=== PATIENT | male | born 1965 | race Caucasian/White ===

== ENCOUNTER 2022-11-10 12:59 | Emergency (ER) | payer SELFPAY ==
[~2022-11-10] VITALS: Ht 182.9 cm; Wt 84.7 kg
[2022-11-10] MEDS ORDERED: ACET650T61 PO (13:14)
[2022-11-10] MEDS ORDERED: NAPR1CAP PO (13:14)
[2022-11-10 15:41] VITALS: BP 101/79; TEMP 97.7; O2SAT 99
== END 2022-11-10 15:45 | disposition home or self-care (01) ==
LOC: M ED 12:59
DX: I83.891 Varicose veins of right lower extremity with other complications (principal); M79.81 Nontraumatic hematoma of soft tissue; F17.200 Nicotine dependence, unspecified, uncomplicated; Z79.1 Long term (current) use of non-steroidal anti-inflammatories (NSAID)

== ENCOUNTER 2024-02-03 12:39 | Emergency (ER) | payer SELFPAY ==
[~2024-02-03] VITALS: Ht 182.9 cm; Wt 81.0 kg
[~2024-02-03 12:39] MED LIST: ACET650T61 PO; NAPR1CAP PO
[2024-02-03] MEDS ORDERED: ISOVUE-370 76% 100ML VIAL As Ordered ONE (13:12)
[2024-02-03 13:14] LABS: BASO % 0.5 % (0.0-1.0); EOS # 0.1 10^3/uL (0.0-0.5); EOS % 1.1 % (0.0-3.0); HEMATOCRIT 43.5 % (42.0-52.0); HEMOGLOBIN 14.9 g/dl (13.5-17.5); LYMPH # 1.4 10^3/uL (1.5-5.0); LYMPH % 21.4 % (24.0-44.0); MEAN CORPUSCULAR HEMOGLOBIN 32.2 pg (27.0-33.0); MEAN CORPUSCULAR HGB CONC 34.3 g/dl (32.0-36.5); MONO % 15.4 % (2.0-8.0); NEUTROPHILS # 3.9 10^3/uL (1.5-8.5); NEUTROPHILS % 61.1 % (36.0-66.0); PLATELET COUNT, AUTOMATED 233 10^3/uL (150-450); RED BLOOD COUNT 4.63 10^6/uL (4.30-6.10); WHITE BLOOD COUNT 6.3 10^3/uL (4.0-10.0)
[2024-02-03] MEDS: NS 500 ML IV ONE (13:20)
[2024-02-03 13:27] LABS: INR 1.1; PARTIAL THROMBOPLASTIN TIME 26.3 SECONDS (24.8-34.2); PROTHROMBIN TIME 13.9 SECONDS (12.5-14.5)
[2024-02-03 13:37] VITALS: BP 128/92; TEMP 99.1; O2SAT 100
[2024-02-03] MEDS: TENECTEPLASE 50 MG/10 ML VIAL IVP ONE (13:59)
[2024-02-03] MEDS: SODIUM CHLORIDE 0.9% INJ 10 ML SYR IV ONE ×2 (14:00)
[2024-02-03 14:06] VITALS: BP 124/78
[2024-02-03] MEDS: DIGOXIN INJ 0.5 MG/2 ML AMP IV ONE (14:20)
[2024-02-03] MEDS: NS 1,000 ML IV SCH (14:21)
[2024-02-03 14:25] VITALS: BP 129/86
[2024-02-03] MEDS ORDERED: HOME MED LIST COMPLETE! XX SCH (14:30)
[2024-02-03 14:56] VITALS: TEMP 97.7; O2SAT 99
[2024-02-03 14:59] VITALS: BP 109/85
== END 2024-02-03 15:03 | disposition short-term general hospital (02) ==
LOC: M ED 12:39 → EDBD 12:39 → M ED 15:03
DX: I63.9 Cerebral infarction, unspecified (principal); I48.91 Unspecified atrial fibrillation; R47.01 Aphasia; M32.9 Systemic lupus erythematosus, unspecified; F17.200 Nicotine dependence, unspecified, uncomplicated; Z79.1 Long term (current) use of non-steroidal anti-inflammatories (NSAID)
CPT/HCPCS: 36415; 70450; 70496; 70498; 71045; 80047; 85025; 85610; 85730; 93005; 93041; 94760; 96374; 96375; 99291; 99292; J1160; J3101; Q9967

== ENCOUNTER → 2024-04-20 | Outpatient (CLI) | payer MEDICAID | LOC: M RAD 09:15 | PROVIDERS: ATTEND Nurse Practitioner Family | DX: I63.9 Cerebral infarction, unspecified (principal) ==

== ENCOUNTER → 2024-05-05 | Outpatient (REF) | payer MEDICAID, OTHER ==
[2024-05-05 18:50] LABS: HEMATOCRIT 40.8 % (42.0-52.0); HEMOGLOBIN 13.3 g/dl (13.5-17.5); MEAN CORPUSCULAR HEMOGLOBIN 31.7 pg (27.0-33.0); MEAN CORPUSCULAR HGB CONC 32.6 g/dl (32.0-36.5); MEAN CORPUSCULAR VOLUME 97.4 fl (80.0-96.0); PLATELET COUNT, AUTOMATED 222 10^3/uL (150-450); RED BLOOD COUNT 4.19 10^6/uL (4.30-6.10); WHITE BLOOD COUNT 6.1 10^3/uL (4.0-10.0)
[2024-05-05 19:05] LABS: PSA SCREENING 1.02 NG/ML (< 4.00)
[2024-05-05 19:09] LABS: THYROID STIMULATING HORMONE 0.423 uIU/ML (0.55-4.78)
[2024-05-05 19:10] LABS: ALKALINE PHOSPHATASE 121 U/L (40-129); ALT/SGPT 96 U/L (7.0-40); AST/SGOT 40 U/L (<34); BILIRUBIN,TOTAL 1.5 MG/DL (0.3-1.2); BLOOD UREA NITROGEN 17 MG/DL (9-23); CALCIUM LEVEL 10.7 MG/DL (8.3-10.6); CARBON DIOXIDE LEVEL 25 MMOL/L (20-31); CHLORIDE LEVEL 112 MMOL/L (98-107); CHOLESTEROL LEVEL 96 MG/DL (<200); CHOLESTEROL RISK RATIO 3.08 (<5); CREATININE FOR GFR 0.94 MG/DL (0.70-1.30); FREE T4 1.01 NG/DL (0.89-1.76); GLOMERULAR FILTRATION RATE > 60.0 (>49); GLUCOSE, FASTING 90 MG/DL (74-106); HDL CHOLESTEROL 31.1 MG/DL (>40); LDL CHOLESTEROL 43.3 MG/DL (<100); NON-HDL-C 64.9 MG/DL; POTASSIUM SERUM 4.7 MMOL/L (3.5-5.1); SODIUM LEVEL 144 MMOL/L (136-145); TOTAL PROTEIN 6.7 G/DL (5.7-8.2); TRIGLYCERIDES LEVEL 108 MG/DL (<150); VITAMIN B12 LEVEL 369 PG/ML (211-911)
[2024-05-05 19:12] LABS: FOLATE 7.61 NG/ML (>5.4)
[2024-05-05 19:29] LABS: HEMOGLOBIN A1c 5.3 % (4.0-6.0)
== END ==
LOC: M SFHCADAM 15:17
PROVIDERS: ATTEND Family Medicine
DX: Z86.73 Personal history of transient ischemic attack (TIA), and cerebral infarction without residual deficits (principal); E78.5 Hyperlipidemia, unspecified; G56.01 Carpal tunnel syndrome, right upper limb; Z12.5 Encounter for screening for malignant neoplasm of prostate

== ENCOUNTER 2024-05-15 12:43 | Emergency (ER) | payer OTHER ==
[~2024-05-15] VITALS: Ht 182.9 cm; Wt 79.1 kg
[2024-05-15 13:32] LABS: BASO % 0.3 % (0.0-1.0); EOS % 0.7 % (0.0-3.0); HEMATOCRIT 37.3 % (42.0-52.0); HEMOGLOBIN 12.4 g/dl (13.5-17.5); LYMPH # 1.3 10^3/uL (1.5-5.0); LYMPH % 22.1 % (24.0-44.0); MEAN CORPUSCULAR HGB CONC 33.2 g/dl (32.0-36.5); MEAN CORPUSCULAR VOLUME 96.4 fl (80.0-96.0); MONO # 0.8 10^3/uL (0.0-0.8); MONO % 13.1 % (2.0-8.0); NEUTROPHILS # 3.8 10^3/uL (1.5-8.5); NEUTROPHILS % 63.8 % (36.0-66.0); PLATELET COUNT, AUTOMATED 237 10^3/uL (150-450); RED BLOOD COUNT 3.87 10^6/uL (4.30-6.10)
[2024-05-15 13:53] LABS: CK-MB VALUE MASS 1.2 NG/ML (<3.6)
[2024-05-15 13:56] LABS: ALBUMIN 2.8 G/DL (3.2-5.2); ALKALINE PHOSPHATASE 113 U/L (40-129); ALT/SGPT 92 U/L (7.0-40); AST/SGOT 43 U/L (<34); BILIRUBIN,DIRECT 0.5 MG/DL (<0.4); BILIRUBIN,TOTAL 1.3 MG/DL (0.3-1.2); BLOOD UREA NITROGEN 16 MG/DL (9-23); CALCIUM LEVEL 10.2 MG/DL (8.3-10.6); CARBON DIOXIDE LEVEL 22 MMOL/L (20-31); CHLORIDE LEVEL 113 MMOL/L (98-107); CREATININE FOR GFR 1.02 MG/DL (0.70-1.30); GLOMERULAR FILTRATION RATE > 60.0 (>49); GLUCOSE, FASTING 98 MG/DL (74-106); POTASSIUM SERUM 4.7 MMOL/L (3.5-5.1); SODIUM LEVEL 142 MMOL/L (136-145); TOTAL PROTEIN 6.5 G/DL (5.7-8.2)
[2024-05-15 13:57] LABS: THYROID STIMULATING HORMONE 1.059 uIU/ML (0.55-4.78)
[2024-05-15 14:01] LABS: CPK CREATINE PHOSPHOKINASE 45 U/L (46-171); MB/CK RELATIVE INDEX 2.66 (< OR =4)
[2024-05-15 14:59] LABS: CK-MB VALUE MASS 1.1 NG/ML (<3.6)
[2024-05-15 15:04] LABS: MB/CK RELATIVE INDEX 2.68 (< OR =4)
[2024-05-15 15:40] LABS: PROCALCITONIN <0.04 ng/ml
[2024-05-15] MEDS: FUROSEMIDE 20MG/2ML VIAL IV ONE (16:50)
[2024-05-15] MEDS ORDERED: FURO20TA2 PO (20:56)
[2024-05-15 21:07] VITALS: BP 103/68; TEMP 97.7; O2SAT 95
== END 2024-05-15 21:10 | disposition home or self-care (01) ==
LOC: EDBD 12:43 → M ED 12:43
DX: I50.22 Chronic systolic (congestive) heart failure (principal); I48.91 Unspecified atrial fibrillation; I45.19 Other right bundle-branch block; M32.9 Systemic lupus erythematosus, unspecified; F17.200 Nicotine dependence, unspecified, uncomplicated; Z86.79 Personal history of other diseases of the circulatory system; Z79.899 Other long term (current) drug therapy
CPT/HCPCS: 71045; 71250; 80048; 80076; 82550; 82553; 83880; 84145; 84443; 84484; 85025; 87040; 87486; 87581; 87633; 87798; 93005; 93041; 94760; 96374; 99285; J1940

== ENCOUNTER → 2024-05-24 | Outpatient (CLI) | payer OTHER ==
[~2024-05-24] MED LIST changes: +FURO20TA2 PO
[2024-05-24 17:17] LABS: INR 1.61; PROTHROMBIN TIME 19.4 SECONDS (12.5-14.5)
== END ==
LOC: M WUC 11:26
PROVIDERS: ATTEND Internal Medicine Critical Care Medicine
DX: D68.69 Other thrombophilia (principal); I48.19 Other persistent atrial fibrillation

== ENCOUNTER → 2024-05-27 | Outpatient (CLI) | payer OTHER | LOC: M WUC 15:14 | PROVIDERS: ATTEND Internal Medicine Critical Care Medicine | DX: D68.69 Other thrombophilia (principal); I48.19 Other persistent atrial fibrillation; Z53.9 Procedure and treatment not carried out, unspecified reason ==

== ENCOUNTER → 2024-05-31 | Outpatient (REF) | payer OTHER ==
[~2024-05-31] MED LIST changes: +LASI20TA3 PO
[2024-05-31 16:23] LABS: INR 4.21; PROTHROMBIN TIME 40.1 SECONDS (12.5-14.5)
== END ==
LOC: M LAB REF 16:01 → M LABWUC 16:01
PROVIDERS: ATTEND Internal Medicine Critical Care Medicine
DX: D68.69 Other thrombophilia (principal); I48.19 Other persistent atrial fibrillation

== ENCOUNTER 2024-06-01 14:30 | Emergency (ER) | payer OTHER ==
[~2024-06-01] VITALS: Ht 182.9 cm; Wt 79.5 kg
[~2024-06-01 14:30] MED LIST changes: -LASI20TA3 PO
[2024-06-01 15:43] LABS: BASO % 0.5 % (0.0-1.0); EOS % 0.5 % (0.0-3.0); HEMATOCRIT 39.3 % (42.0-52.0); HEMOGLOBIN 13.1 g/dl (13.5-17.5); LYMPH # 1.5 10^3/uL (1.5-5.0); LYMPH % 25.3 % (24.0-44.0); MEAN CORPUSCULAR HEMOGLOBIN 32.4 pg (27.0-33.0); MEAN CORPUSCULAR HGB CONC 33.3 g/dl (32.0-36.5); MEAN CORPUSCULAR VOLUME 97.3 fl (80.0-96.0); MONO # 0.8 10^3/uL (0.0-0.8); MONO % 13.1 % (2.0-8.0); NEUTROPHILS # 3.6 10^3/uL (1.5-8.5); NEUTROPHILS % 60.4 % (36.0-66.0); PLATELET COUNT, AUTOMATED 201 10^3/uL (150-450); RED BLOOD COUNT 4.04 10^6/uL (4.30-6.10); WHITE BLOOD COUNT 5.9 10^3/uL (4.0-10.0)
[2024-06-01 16:12] LABS: CK-MB VALUE MASS 2.9 NG/ML (<3.6)
[2024-06-01 16:13] LABS: CPK CREATINE PHOSPHOKINASE 60 U/L (46-171); MB/CK RELATIVE INDEX 4.83 (< OR =4)
[2024-06-01 16:16] LABS: BLOOD UREA NITROGEN 25 MG/DL (9-23); CALCIUM LEVEL 8.9 MG/DL (8.3-10.6); CARBON DIOXIDE LEVEL 24 MMOL/L (20-31); CHLORIDE LEVEL 111 MMOL/L (98-107); CREATININE FOR GFR 1.16 MG/DL (0.70-1.30); GLOMERULAR FILTRATION RATE > 60.0 (>49); GLUCOSE, FASTING 83 MG/DL (74-106); POTASSIUM SERUM 4.2 MMOL/L (3.5-5.1); SODIUM LEVEL 142 MMOL/L (136-145)
[2024-06-01 17:39] LABS: CK-MB VALUE MASS 2.4 NG/ML (<3.6)
[2024-06-01 17:45] LABS: MB/CK RELATIVE INDEX 3.75 (< OR =4)
[2024-06-01] MEDS: FUROSEMIDE 40MG/4ML VIAL IV ONE (18:05)
[2024-06-01] MEDS ORDERED: LASI20TA3 PO (20:57)
[2024-06-01 21:15] VITALS: BP 91/61
[2024-06-01 21:16] VITALS: O2SAT 94
[2024-06-01 21:30] VITALS: TEMP 96.8
== END 2024-06-01 21:31 | disposition home or self-care (01) ==
LOC: EDBD 14:30 → M ED 14:30
DX: I50.22 Chronic systolic (congestive) heart failure (principal); R79.89 Other specified abnormal findings of blood chemistry; I45.10 Unspecified right bundle-branch block; I48.91 Unspecified atrial fibrillation; Z87.891 Personal history of nicotine dependence; Z79.899 Other long term (current) drug therapy
CPT/HCPCS: 71046; 80048; 82550; 82553; 83880; 84484; 85025; 85379; 87486; 87581; 87633; 87798; 93005; 96374; 99285; J1940

== ENCOUNTER → 2024-06-03 | Outpatient (CLI) | payer OTHER ==
[~2024-06-03] MED LIST changes: +LASI20TA3 PO
[2024-06-03 16:54] LABS: PROTHROMBIN TIME 31.1 SECONDS (12.5-14.5)
[2024-06-03 16:56] LABS: BLOOD UREA NITROGEN 28 MG/DL (9-23); CALCIUM LEVEL 9.3 MG/DL (8.3-10.6); CARBON DIOXIDE LEVEL 25 MMOL/L (20-31); CHLORIDE LEVEL 108 MMOL/L (98-107); CREATININE FOR GFR 1.23 MG/DL (0.70-1.30); GLOMERULAR FILTRATION RATE > 60.0 (>49); GLUCOSE, FASTING 118 MG/DL (74-106); MAGNESIUM LEVEL 2.2 MG/DL (1.8-2.4); POTASSIUM SERUM 4.4 MMOL/L (3.5-5.1); SODIUM LEVEL 142 MMOL/L (136-145)
== END ==
LOC: M WUC 13:56
PROVIDERS: ATTEND Internal Medicine Critical Care Medicine
DX: D68.69 Other thrombophilia (principal); I48.19 Other persistent atrial fibrillation

== ENCOUNTER → 2024-06-08 | Outpatient (CLI) | payer OTHER ==
[~2024-06-08] MED LIST changes: +ATOR40TA75 PO; +METO1TAB32 PO; +MIDO5TA PO; +WARF-23 PO
== END ==
LOC: M SOG 13:23
PROVIDERS: ATTEND Physician Assistant
DX: M79.641 Pain in right hand (principal)

== ENCOUNTER 2024-06-09 17:06 | Inpatient (IN) | payer MEDICAID, OTHER ==
[~2024-06-09] VITALS: Ht 182.9 cm; Wt 78.4 kg
[~2024-06-09 17:06] MED LIST changes: -ATOR40TA75 PO; -METO1TAB32 PO; -MIDO5TA PO; -WARF-23 PO
[2024-06-09] MEDS ORDERED: WARF-23 PO (17:25)
[2024-06-09] MEDS ORDERED: ATOR40TA75 PO (17:25)
[2024-06-09] MEDS ORDERED: METO1TAB32 PO (17:25)
[2024-06-09] MEDS ORDERED: MIDO5TA PO (17:25)
[2024-06-09 18:19] LABS: BASO % 0.5 % (0.0-1.0); EOS % 0.6 % (0.0-3.0); HEMATOCRIT 42.2 % (42.0-52.0); HEMOGLOBIN 13.9 g/dl (13.5-17.5); LYMPH # 1.7 10^3/uL (1.5-5.0); LYMPH % 26.7 % (24.0-44.0); MEAN CORPUSCULAR HEMOGLOBIN 31.9 pg (27.0-33.0); MEAN CORPUSCULAR HGB CONC 32.9 g/dl (32.0-36.5); MEAN CORPUSCULAR VOLUME 96.8 fl (80.0-96.0); MONO # 0.8 10^3/uL (0.0-0.8); MONO % 12.9 % (2.0-8.0); NEUTROPHILS # 3.8 10^3/uL (1.5-8.5); NEUTROPHILS % 59.1 % (36.0-66.0); PLATELET COUNT, AUTOMATED 229 10^3/uL (150-450); RED BLOOD COUNT 4.36 10^6/uL (4.30-6.10); WHITE BLOOD COUNT 6.4 10^3/uL (4.0-10.0)
[2024-06-09 18:48] LABS: ALBUMIN 2.9 G/DL (3.2-5.2); ALKALINE PHOSPHATASE 104 U/L (40-129); ALT/SGPT 63 U/L (7.0-40); AST/SGOT 34 U/L (<34); BILIRUBIN,DIRECT 0.6 MG/DL (<0.4); BILIRUBIN,TOTAL 1.6 MG/DL (0.3-1.2); BLOOD UREA NITROGEN 25 MG/DL (9-23); CALCIUM LEVEL 9.2 MG/DL (8.3-10.6); CARBON DIOXIDE LEVEL 27 MMOL/L (20-31); CHLORIDE LEVEL 107 MMOL/L (98-107); CK-MB VALUE MASS 1.8 NG/ML (<3.6); CPK CREATINE PHOSPHOKINASE 63 U/L (46-171); CREATININE FOR GFR 1.09 MG/DL (0.70-1.30); GLOMERULAR FILTRATION RATE > 60.0 (>49); GLUCOSE, FASTING 102 MG/DL (74-106); MB/CK RELATIVE INDEX 2.85 (< OR =4); POTASSIUM SERUM 3.9 MMOL/L (3.5-5.1); SODIUM LEVEL 142 MMOL/L (136-145)
[2024-06-09 20:02] LABS: CK-MB VALUE MASS 2.9 NG/ML (<3.6)
[2024-06-09] MEDS ORDERED: ISOVUE-370 76% 100ML VIAL As Ordered ONE (20:05)
[2024-06-09 20:13] LABS: MB/CK RELATIVE INDEX 3.91 (< OR =4)
[2024-06-09] MEDS: IPRATROPIUM 0.5MG/ALBUTEROL 2.5MG INH SOL UD 3ML (DUONEB) NEB ONE (21:07)
[2024-06-09 21:35] LABS: CK-MB VALUE MASS 2.8 NG/ML (<3.6)
[2024-06-09 21:36] LABS: MB/CK RELATIVE INDEX 4.59 (< OR =4)
[2024-06-09 21:39] LABS: INR 1.84; PARTIAL THROMBOPLASTIN TIME 31.4 SECONDS (24.8-34.2); PROTHROMBIN TIME 21.4 SECONDS (12.5-14.5)
[2024-06-09] MEDS: FUROSEMIDE 40MG/4ML VIAL IV ONE (22:50)
[2024-06-09] MEDS ORDERED: MAALOX 30 ML SUSP *UDC PO PRN (23:50)
[2024-06-09] MEDS ORDERED: MOM 30ML SUSPENSION UDC PO PRN (23:50)
[2024-06-09] MEDS ORDERED: ACETAMINOPHEN 325 MG TAB PO PRN (23:50)
[2024-06-10] VITALS (14 sets, daily range): BP systolic 95–129; BP diastolic 55–74; TEMP 97.1–99.6; O2SAT 93–100
[2024-06-10] MEDS ORDERED: FURO20TA2 PO (00:16)
[2024-06-10] MEDS ORDERED: HOME MED LIST COMPLETE! XX SCH (00:20)
[2024-06-10] MEDS: METOPROLOL TART 25 MG TABLET PO SCH (01:20)
[2024-06-10] MEDS: WARFARIN SOD 2.5MG TAB PO SCH (01:21)
[2024-06-10] MEDS: ATORVASTATIN 20 MG TAB PO SCH (01:21)
[2024-06-10] MEDS: FUROSEMIDE 40MG/4ML VIAL IV SCH (05:55)
[2024-06-10 07:21] LABS: HEMATOCRIT 37.9 % (42.0-52.0); HEMOGLOBIN 12.7 g/dl (13.5-17.5); MEAN CORPUSCULAR HEMOGLOBIN 31.4 pg (27.0-33.0); MEAN CORPUSCULAR HGB CONC 33.5 g/dl (32.0-36.5); MEAN CORPUSCULAR VOLUME 93.8 fl (80.0-96.0); PLATELET COUNT, AUTOMATED 220 10^3/uL (150-450); RED BLOOD COUNT 4.04 10^6/uL (4.30-6.10); WHITE BLOOD COUNT 6.7 10^3/uL (4.0-10.0)
[2024-06-10 07:44] LABS: HEMOGLOBIN A1c 5.7 % (4.0-6.0)
[2024-06-10 07:52] LABS: ALBUMIN 2.8 G/DL (3.2-5.2); ALKALINE PHOSPHATASE 99 U/L (40-129); ALT/SGPT 57 U/L (7.0-40); AST/SGOT 30 U/L (<34); BILIRUBIN,TOTAL 1.6 MG/DL (0.3-1.2); BLOOD UREA NITROGEN 25 MG/DL (9-23); CALCIUM LEVEL 9.3 MG/DL (8.3-10.6); CARBON DIOXIDE LEVEL 24 MMOL/L (20-31); CHLORIDE LEVEL 108 MMOL/L (98-107); CHOLESTEROL LEVEL 99 MG/DL (<200); CK-MB VALUE MASS 1.6 NG/ML (<3.6); CPK CREATINE PHOSPHOKINASE 62 U/L (46-171); GLOMERULAR FILTRATION RATE > 60.0 (>49); GLUCOSE, FASTING 81 MG/DL (74-106); MAGNESIUM LEVEL 2.3 MG/DL (1.8-2.4); MB/CK RELATIVE INDEX 2.58 (< OR =4); POTASSIUM SERUM 3.6 MMOL/L (3.5-5.1); SODIUM LEVEL 141 MMOL/L (136-145); TOTAL PROTEIN 6.8 G/DL (5.7-8.2); TRIGLYCERIDES LEVEL 70 MG/DL (<150)
[2024-06-10 07:54] LABS: THYROID STIMULATING HORMONE 3.296 uIU/ML (0.55-4.78)
[2024-06-10 07:58] LABS: INR 1.74; PROTHROMBIN TIME 20.5 SECONDS (12.5-14.5)
[2024-06-10] MEDS: NICOTINE 14 MG/24 HR TRANSDERMAL TD SCH (08:10)
[2024-06-10] MEDS: DOCUSATE SODIUM 100MG CAPSULE PO SCH (08:10)
[2024-06-10] MEDS: MIDODRINE 5 MG TAB PO SCH (08:16)
[2024-06-10] MEDS ORDERED: ENOXAPARIN 40MG/0.4ML SYRINGE (J1650 PER 10MG) SC SCH (10:00)
[2024-06-10] MEDS: WARFARIN SOD 4MG TAB PO ONE (17:47)
[2024-06-11] VITALS (19 sets, daily range): BP systolic 92–108; BP diastolic 63–79; TEMP 98.1–99.5; O2SAT 94–98
[2024-06-11 06:00] LABS: HEMATOCRIT 36.8 % (42.0-52.0); HEMOGLOBIN 12.3 g/dl (13.5-17.5); MEAN CORPUSCULAR HEMOGLOBIN 31.9 pg (27.0-33.0); MEAN CORPUSCULAR HGB CONC 33.4 g/dl (32.0-36.5); MEAN CORPUSCULAR VOLUME 95.6 fl (80.0-96.0); PLATELET COUNT, AUTOMATED 206 10^3/uL (150-450); RED BLOOD COUNT 3.85 10^6/uL (4.30-6.10)
[2024-06-11 06:11] LABS: INR 1.98; PROTHROMBIN TIME 22.6 SECONDS (12.5-14.5)
[2024-06-11 06:23] LABS: BLOOD UREA NITROGEN 31 MG/DL (9-23); CALCIUM LEVEL 8.9 MG/DL (8.3-10.6); CARBON DIOXIDE LEVEL 24 MMOL/L (20-31); CHLORIDE LEVEL 106 MMOL/L (98-107); CREATININE FOR GFR 1.28 MG/DL (0.70-1.30); GLOMERULAR FILTRATION RATE > 60.0 (>49); GLUCOSE, FASTING 90 MG/DL (74-106); POTASSIUM SERUM 3.7 MMOL/L (3.5-5.1); SODIUM LEVEL 140 MMOL/L (136-145)
[2024-06-11] MEDS: WARFARIN SOD 3MG TAB PO SCH (16:22)
[2024-06-11 18:57] LABS: KETONE, URINE AUTO RFX NEGATIVE (NEGATIVE); LEUKOCYTE ESTERASE UR AUTO RFX NEGATIVE (NEGATIVE); NITRITE, URINE AUTO RFX NEGATIVE (NEGATIVE); RBC, URINE AUTO RFX 7 /HPF (0-3); SQUAM EPITHELIAL CELL UR AURFX 0 /HPF (0-6); WBC, URINE AUTO RFX 2 /HPF (0-3)
[2024-06-11 19:45] LABS: CK-MB VALUE MASS 1.5 NG/ML (<3.6)
[2024-06-11 19:47] LABS: MB/CK RELATIVE INDEX 2.41 (< OR =4)
[2024-06-11] MEDS: METOPROLOL TART 25 MG TABLET PO SCH (20:35)
[2024-06-12] VITALS (21 sets, daily range): BP systolic 96–108; BP diastolic 60–83; TEMP 97.5–99.2; O2SAT 92–100
[2024-06-12 05:31] LABS: HEMATOCRIT 35.5 % (42.0-52.0); HEMOGLOBIN 12.1 g/dl (13.5-17.5); MEAN CORPUSCULAR HEMOGLOBIN 31.4 pg (27.0-33.0); MEAN CORPUSCULAR HGB CONC 34.1 g/dl (32.0-36.5); MEAN CORPUSCULAR VOLUME 92.2 fl (80.0-96.0); PLATELET COUNT, AUTOMATED 205 10^3/uL (150-450); RED BLOOD COUNT 3.85 10^6/uL (4.30-6.10); WHITE BLOOD COUNT 6.2 10^3/uL (4.0-10.0)
[2024-06-12 05:47] LABS: INR 2.01; PROTHROMBIN TIME 22.9 SECONDS (12.5-14.5)
[2024-06-12 06:02] LABS: CK-MB VALUE MASS 2.2 NG/ML (<3.6)
[2024-06-12 06:08] LABS: ALBUMIN 2.8 G/DL (3.2-5.2); ALKALINE PHOSPHATASE 105 U/L (40-129); ALT/SGPT 58 U/L (7.0-40); AST/SGOT 34 U/L (<34); BILIRUBIN,TOTAL 1.9 MG/DL (0.3-1.2); BLOOD UREA NITROGEN 29 MG/DL (9-23); CALCIUM LEVEL 8.4 MG/DL (8.3-10.6); CARBON DIOXIDE LEVEL 22 MMOL/L (20-31); CHLORIDE LEVEL 108 MMOL/L (98-107); CPK CREATINE PHOSPHOKINASE 59 U/L (46-171); CREATININE FOR GFR 1.19 MG/DL (0.70-1.30); GLOMERULAR FILTRATION RATE > 60.0 (>49); GLUCOSE, FASTING 88 MG/DL (74-106); MB/CK RELATIVE INDEX 3.72 (< OR =4); POTASSIUM SERUM 3.8 MMOL/L (3.5-5.1); SODIUM LEVEL 141 MMOL/L (136-145); TOTAL PROTEIN 6.3 G/DL (5.7-8.2)
[2024-06-12] MEDS: FUROSEMIDE 40MG/4ML VIAL IV SCH (09:00)
[2024-06-12] MEDS ORDERED: METOPROLOL SUCC *XL* 25MG TAB (TopROL *XL*) PO SCH (09:00)
[2024-06-12] MEDS: DAPAGLIFLOZIN PROPANEDIOL 10MG TABLET (FARXIGA) PO SCH (09:23)
[2024-06-12] MEDS: AMIODARONE 200 MG TAB (PACERONE) PO SCH (12:44)
[2024-06-12] MEDS: METOPROLOL TART 25 MG TABLET PO ONE (12:45)
[2024-06-12] MEDS ORDERED: AMIODARONE 200 MG TAB (PACERONE) PO SCH (21:00)
[2024-06-13] VITALS (16 sets, daily range): BP systolic 99–108; BP diastolic 59–81; TEMP 97.7–98.8; O2SAT 90–98
[2024-06-13 03:31] LABS: PROTEIN, TOTAL SO 6.2 g/dL (6.1-8.1)
[2024-06-13 06:04] LABS: HEMATOCRIT 36.9 % (42.0-52.0); HEMOGLOBIN 12.8 g/dl (13.5-17.5); MEAN CORPUSCULAR HEMOGLOBIN 32.4 pg (27.0-33.0); MEAN CORPUSCULAR HGB CONC 34.7 g/dl (32.0-36.5); MEAN CORPUSCULAR VOLUME 93.4 fl (80.0-96.0); PLATELET COUNT, AUTOMATED 201 10^3/uL (150-450); RED BLOOD COUNT 3.95 10^6/uL (4.30-6.10); WHITE BLOOD COUNT 5.8 10^3/uL (4.0-10.0)
[2024-06-13 06:16] LABS: INR 2.22; PROTHROMBIN TIME 24.7 SECONDS (12.5-14.5)
[2024-06-13 06:29] LABS: ALBUMIN 2.9 G/DL (3.2-5.2); BILIRUBIN,TOTAL 2.2 MG/DL (0.3-1.2); CALCIUM LEVEL 8.8 MG/DL (8.3-10.6); CK-MB VALUE MASS 3.1 NG/ML (<3.6); CREATININE FOR GFR 1.32 MG/DL (0.70-1.30); GLOMERULAR FILTRATION RATE 58.9 (>49); POTASSIUM SERUM 3.9 MMOL/L (3.5-5.1); TOTAL PROTEIN 6.5 G/DL (5.7-8.2)
[2024-06-13 06:30] LABS: MB/CK RELATIVE INDEX 5.53 (< OR =4)
[2024-06-14 03:05] VITALS: BP 113/71; TEMP 97.5; O2SAT 96
[2024-06-14 05:01] LABS: HEMATOCRIT 37.2 % (42.0-52.0); HEMOGLOBIN 12.5 g/dl (13.5-17.5); MEAN CORPUSCULAR HEMOGLOBIN 32.1 pg (27.0-33.0); MEAN CORPUSCULAR HGB CONC 33.6 g/dl (32.0-36.5); MEAN CORPUSCULAR VOLUME 95.6 fl (80.0-96.0); PLATELET COUNT, AUTOMATED 211 10^3/uL (150-450); RED BLOOD COUNT 3.89 10^6/uL (4.30-6.10); WHITE BLOOD COUNT 6.2 10^3/uL (4.0-10.0)
[2024-06-14 05:14] LABS: INR 2.37
[2024-06-14 05:34] LABS: CK-MB VALUE MASS 1.8 NG/ML (<3.6)
[2024-06-14 05:35] LABS: MB/CK RELATIVE INDEX 3.6 (< OR =4)
[2024-06-14 05:36] LABS: ALBUMIN 2.9 G/DL (3.2-5.2); CALCIUM LEVEL 9.1 MG/DL (8.3-10.6); CREATININE FOR GFR 1.3 MG/DL (0.70-1.30); GLOMERULAR FILTRATION RATE 59.9 (>49); POTASSIUM SERUM 4.2 MMOL/L (3.5-5.1); TOTAL PROTEIN 6.5 G/DL (5.7-8.2)
[2024-06-14 07:57] VITALS: BP 104/69; TEMP 98.7; O2SAT 93
[2024-06-14 09:14] VITALS: BP 106/79; O2SAT 96
[2024-06-14 11:39] VITALS: BP 100/70; TEMP 98.5; O2SAT 97
[2024-06-14 12:01] LABS: PROTEIN CREATININE RATIO 256 mg/g creat (25-148); T PROTEIN CREATININE RATIO 0.256 (0.025-0.148); UPEP CREATININE 117 mg/dL (20-320); UPEP TOTAL PROTEIN 30 mg/dL (5-25)
[2024-06-14 16:19] VITALS: BP 94/68; TEMP 97.3; O2SAT 96
[2024-06-14 19:28] VITALS: BP 93/74; TEMP 98.6; O2SAT 96
[2024-06-15] VITALS (8 sets, daily range): BP systolic 91–112; BP diastolic 58–87; TEMP 97–98.5; O2SAT 96–97
[2024-06-15 06:08] LABS: ALPHA 1 GLOBULINS SO 0.3 g/dL (0.2-0.3); ALPHA 2 GLOBULINS SO 0.7 g/dL (0.5-0.9); BETA 2 GLOBULIN SO 0.2 g/dL (0.2-0.5); BETA GLOBULIN SO 0.3 g/dL (0.4-0.6); GAMMA GLOBULINS SO 1.6 g/dL (0.8-1.7); SPEP IFE ABN PROTEIN BAND 1 1.4 g/dL (NONE DETECTED)
[2024-06-15 07:17] LABS: HEMATOCRIT 37.3 % (42.0-52.0); HEMOGLOBIN 12.4 g/dl (13.5-17.5); MEAN CORPUSCULAR HEMOGLOBIN 31.4 pg (27.0-33.0); MEAN CORPUSCULAR HGB CONC 33.2 g/dl (32.0-36.5); MEAN CORPUSCULAR VOLUME 94.4 fl (80.0-96.0); PLATELET COUNT, AUTOMATED 215 10^3/uL (150-450); RED BLOOD COUNT 3.95 10^6/uL (4.30-6.10); WHITE BLOOD COUNT 6.1 10^3/uL (4.0-10.0)
[2024-06-15 07:31] LABS: INR 2.67; PROTHROMBIN TIME 28.4 SECONDS (12.5-14.5)
[2024-06-15 07:54] LABS: ALBUMIN 2.8 G/DL (3.2-5.2); BILIRUBIN,TOTAL 1.9 MG/DL (0.3-1.2); CALCIUM LEVEL 8.9 MG/DL (8.3-10.6); CK-MB VALUE MASS 1.3 NG/ML (<3.6); CREATININE FOR GFR 1.36 MG/DL (0.70-1.30); GLOMERULAR FILTRATION RATE 56.9 (>49); MB/CK RELATIVE INDEX 2.2 (< OR =4); POTASSIUM SERUM 3.9 MMOL/L (3.5-5.1); TOTAL PROTEIN 6.7 G/DL (5.7-8.2)
[2024-06-15] MEDS: TORSEMIDE 20 MG TAB PO SCH (11:06)
[2024-06-15 11:58] LABS: UPEP ALBUMIN 49 %; URINE ALPHA 1 GLOBULIN 4 %; URINE ALPHA 2 GLOBULIN 10 %; URINE BETA GLOBULIN 14 %; URINE GAMMA GLOBULIN 23 %
[2024-06-15 12:47] LABS: PROTEIN CREATININE RATIO 322 mg/g creat (25-148); T PROTEIN CREATININE RATIO 0.322 (0.025-0.148); UPEP CREATININE 115 mg/dL (20-320); UPEP TOTAL PROTEIN 37 mg/dL (5-25)
[2024-06-15 13:03] LABS: FREE KAPPA LIGHT CHAINS SERUM 21.3 mg/L (3.3-19.4); FREE LAMBDA LIGHT CHAINS SERUM 224.7 mg/L (5.7-26.3); KAPPA/LAMBDA RATIO SERUM 0.09 (0.26-1.65)
[2024-06-15] MEDS ORDERED: METO1TAB87 PO (14:02)
[2024-06-15] MEDS ORDERED: AMIO200T49 PO (14:02)
[2024-06-15] MEDS ORDERED: FARX1TAB3 PO (14:02)
[2024-06-16 07:23] LABS: UPEP ALBUMIN 46 %; URINE ALPHA 1 GLOBULIN 4 %; URINE ALPHA 2 GLOBULIN 13 %; URINE BETA GLOBULIN 14 %; URINE GAMMA GLOBULIN 22 %
[2024-06-16 13:53] LABS: FREE KAPPA LIGHT CHAINS URINE 70.09 mg/L (<=32.90); FREE LAMBDA LIGHT CHAINS URINE 82.1 mg/L (<=3.79); KAPPA/LAMBDA RATIO URINE 0.85 (<=8.69)
[2024-06-16] MEDS ORDERED: ELIQ5TAB PO (13:57)
== END 2024-06-15 15:35 | disposition home or self-care (01) | DRG 194 ==
LOC: M ED 17:06 → M ED INP 23:46 → M PCU 06-10 09:10
PROVIDERS: ADMIT Student in an Organized Health Care Education/Training Program; ATTEND Student in an Organized Health Care Education/Training Program
DX: I50.43 Acute on chronic combined systolic (congestive) and diastolic (congestive) heart failure (principal); I95.89 Other hypotension; E85.4 Organ-limited amyloidosis; I82.90 Acute embolism and thrombosis of unspecified vein; I27.20 Pulmonary hypertension, unspecified; H53.47 Heteronymous bilateral field defects; I42.8 Other cardiomyopathies; I08.1 Rheumatic disorders of both mitral and tricuspid valves; I24.89 Other forms of acute ischemic heart disease; Z79.01 Long term (current) use of anticoagulants; I48.91 Unspecified atrial fibrillation; I69.398 Other sequelae of cerebral infarction; J44.9 Chronic obstructive pulmonary disease, unspecified; R00.0 Tachycardia, unspecified; F17.200 Nicotine dependence, unspecified, uncomplicated; Z79.899 Other long term (current) drug therapy

== ENCOUNTER 2024-06-20 10:32 | Inpatient (IN) | payer MEDICAID ==
[~2024-06-20] VITALS: Ht 182.9 cm; Wt 78.8 kg
[~2024-06-20 10:32] MED LIST changes: +AMIO200T49 PO; +ATOR40TA75 PO; +ELIQ5TAB PO; +FARX1TAB3 PO; +METO1TAB32 PO; +METO1TAB87 PO; +MIDO5TA PO; +WARF-23 PO
[2024-06-20 11:38] LABS: VENOUS BASE EXCESS -4.7 (-2.0-2.0); VENOUS HCO3 21.7 MMOL/L (23.0-27.0); VENOUS O2 SATURATION 53.6 % (60.0-80.0); VENOUS PARTIAL PRESSURE CO2 44.8 mmHg (38.0-50.0); VENOUS PARTIAL PRESSURE O2 32.2 mmHg (30.0-50.0); VENOUS PH 7.303 UNITS (7.330-7.430); VENOUS STANDARD HCO3 19.6 MMOL/L; VENOUS TOTAL CO2 23.1 MMOL/L (24.0-28.0)
[2024-06-20 11:43] LABS: BASO % 0.3 % (0.0-1.0); EOS % 0.5 % (0.0-3.0); HEMATOCRIT 42.7 % (42.0-52.0); HEMOGLOBIN 14.2 g/dl (13.5-17.5); LYMPH # 1.3 10^3/uL (1.5-5.0); LYMPH % 21.9 % (24.0-44.0); MEAN CORPUSCULAR HEMOGLOBIN 32.1 pg (27.0-33.0); MEAN CORPUSCULAR HGB CONC 33.3 g/dl (32.0-36.5); MEAN CORPUSCULAR VOLUME 96.4 fl (80.0-96.0); MONO # 0.6 10^3/uL (0.0-0.8); MONO % 9.4 % (2.0-8.0); NEUTROPHILS # 4.1 10^3/uL (1.5-8.5); NEUTROPHILS % 67.7 % (36.0-66.0); PLATELET COUNT, AUTOMATED 209 10^3/uL (150-450); RED BLOOD COUNT 4.43 10^6/uL (4.30-6.10); WHITE BLOOD COUNT 6.1 10^3/uL (4.0-10.0)
[2024-06-20] MEDS ORDERED: METOPROLOL SUCC *XL* 25MG TAB (TopROL *XL*) PO ONE (11:45)
[2024-06-20 11:56] LABS: INR 1.38; PARTIAL THROMBOPLASTIN TIME 23.8 SECONDS (24.8-34.2); PROTHROMBIN TIME 17.3 SECONDS (12.5-14.5)
[2024-06-20] MEDS: AMIODARONE 200 MG TAB (PACERONE) PO ONE (12:14)
[2024-06-20] MEDS: METOPROLOL TART 12.5 MG PER 1/2 TAB PO ONE (12:14)
[2024-06-20] MEDS: FUROSEMIDE 40MG/4ML VIAL IV ONE (12:14)
[2024-06-20] MEDS: MIDODRINE 5 MG TAB PO ONE (12:14)
[2024-06-20 13:13] LABS: CK-MB VALUE MASS 2.9 NG/ML (<3.6)
[2024-06-20 13:14] LABS: MB/CK RELATIVE INDEX 4.91 (< OR =4)
[2024-06-20 13:17] LABS: ALBUMIN 2.9 G/DL (3.2-5.2); BILIRUBIN,DIRECT 0.8 MG/DL (<0.4); CALCIUM LEVEL 8.8 MG/DL (8.3-10.6); CREATININE FOR GFR 1.43 MG/DL (0.70-1.30); GLOMERULAR FILTRATION RATE 53.7 (>49); POTASSIUM SERUM 3.9 MMOL/L (3.5-5.1); TOTAL PROTEIN 6.8 G/DL (5.7-8.2)
[2024-06-20] MEDS ORDERED: ISOVUE-370 76% 100ML VIAL As Ordered ONE (13:25)
[2024-06-20] MEDS: NS 500 ML IV ONE (14:55)
[2024-06-20] MEDS: DOXYCYCLINE HYCLATE 100MG TABLET PO ONE (15:09)
[2024-06-20] MEDS: cefTRIAXone SOD 1 GM in DEXTROSE 5% (D5W) ADV/MINI-BAG 50 ML IV ONE (15:09)
[2024-06-20] MEDS ORDERED: AMIO200T49 PO (18:41)
[2024-06-20] MEDS ORDERED: FARX1TAB3 PO (18:41)
[2024-06-20] MEDS ORDERED: METO1TAB87 PO (18:42)
[2024-06-20] MEDS ORDERED: HOME MED LIST COMPLETE! XX SCH (18:45)
[2024-06-20] MEDS: APIXABAN 5 MG TAB (ELIQUIS) PO SCH (21:36)
[2024-06-20] MEDS: DOXYCYCLINE HYCLATE 100MG TABLET PO SCH (21:36)
[2024-06-21 06:36] LABS: HEMATOCRIT 38.5 % (42.0-52.0); HEMOGLOBIN 12.8 g/dl (13.5-17.5); MEAN CORPUSCULAR HEMOGLOBIN 31.6 pg (27.0-33.0); MEAN CORPUSCULAR HGB CONC 33.2 g/dl (32.0-36.5); MEAN CORPUSCULAR VOLUME 95.1 fl (80.0-96.0); PLATELET COUNT, AUTOMATED 220 10^3/uL (150-450); RED BLOOD COUNT 4.05 10^6/uL (4.30-6.10); WHITE BLOOD COUNT 6.1 10^3/uL (4.0-10.0)
[2024-06-21 06:48] LABS: ALBUMIN 2.8 G/DL (3.2-5.2); BILIRUBIN,TOTAL 2.1 MG/DL (0.3-1.2); CALCIUM LEVEL 8.8 MG/DL (8.3-10.6); CREATININE FOR GFR 1.6 MG/DL (0.70-1.30); GLOMERULAR FILTRATION RATE 47.2 (>49); POTASSIUM SERUM 4.3 MMOL/L (3.5-5.1); TOTAL PROTEIN 6.7 G/DL (5.7-8.2)
[2024-06-21] MEDS ORDERED: FUROSEMIDE 20 MG TAB PO PRN (06:50)
[2024-06-21] MEDS: DAPAGLIFLOZIN PROPANEDIOL 10MG TABLET (FARXIGA) PO SCH (08:06)
[2024-06-21] MEDS: MIDODRINE 5 MG TAB PO SCH (08:07)
[2024-06-21] MEDS: AMIODARONE 200 MG TAB (PACERONE) PO SCH (08:07)
[2024-06-21] MEDS: METOPROLOL TART 25 MG TABLET PO SCH (08:08)
[2024-06-21] MEDS: cefTRIAXone SOD 1 GM in DEXTROSE 5% (D5W) ADV/MINI-BAG 50 ML IV SCH (08:09)
[2024-06-21] MEDS: predniSONE 20 MG TAB PO SCH (08:43)
[2024-06-21] MEDS: LEVALBUTEROL 1.25MG 0.5ML CONCENTRATE NEB INH SCH (08:46)
[2024-06-21] MEDS: IPRATROPIUM 0.02% SOLN 0.5MG 2.5ML NEB INH SCH (08:46)
[2024-06-21 14:10] VITALS: BP 107/78; TEMP 97.8; O2SAT 100
[2024-06-21 15:48] VITALS: BP 103/75; TEMP 97.3; O2SAT 95
[2024-06-21 19:50] VITALS: BP 99/71; TEMP 97.9; O2SAT 96
[2024-06-21 20:51] VITALS: BP 106/77
[2024-06-21] MEDS: ATORVASTATIN 20 MG TAB PO SCH (20:52)
[2024-06-21] MEDS ORDERED: PILL CUTTER 1 EACH XX ONE (20:55)
[2024-06-21 23:34] VITALS: BP 133/63; TEMP 97.1; O2SAT 94
[2024-06-22] VITALS (10 sets, daily range): BP systolic 95–170; BP diastolic 56–92; TEMP 97–98.5; O2SAT 93–100
[2024-06-22 06:05] LABS: BASO % 0.3 % (0.0-1.0); EOS # 0.1 10^3/uL (0.0-0.5); EOS % 0.7 % (0.0-3.0); HEMATOCRIT 36.5 % (42.0-52.0); HEMOGLOBIN 12.2 g/dl (13.5-17.5); LYMPH # 1.3 10^3/uL (1.5-5.0); LYMPH % 16.3 % (24.0-44.0); MEAN CORPUSCULAR HEMOGLOBIN 31.7 pg (27.0-33.0); MEAN CORPUSCULAR HGB CONC 33.4 g/dl (32.0-36.5); MEAN CORPUSCULAR VOLUME 94.8 fl (80.0-96.0); MONO % 13.2 % (2.0-8.0); NEUTROPHILS # 5.3 10^3/uL (1.5-8.5); NEUTROPHILS % 69.1 % (36.0-66.0); PLATELET COUNT, AUTOMATED 213 10^3/uL (150-450); RED BLOOD COUNT 3.85 10^6/uL (4.30-6.10); WHITE BLOOD COUNT 7.7 10^3/uL (4.0-10.0)
[2024-06-22 06:19] LABS: CALCIUM LEVEL 8.6 MG/DL (8.3-10.6); CREATININE FOR GFR 1.47 MG/DL (0.70-1.30); POTASSIUM SERUM 4.1 MMOL/L (3.5-5.1)
[2024-06-22] MEDS: MIDODRINE 5 MG TAB PO SCH (08:00)
[2024-06-22] MEDS: guaiFENesin ER TABLET 600 MG TAB PO SCH (09:00)
[2024-06-22 12:59] LABS: PLEURAL FL COLOR YELLOW (COLORLESS); SOURCE, BODY FLUID PLEURAL
[2024-06-22 13:00] LABS: APPEARANCE, BODY FLUID HAZY (CLEAR)
[2024-06-22 13:07] LABS: SOURCE, BODY FLUID pH PLEURAL
[2024-06-22 13:24] LABS: SOURCE, BODY FLUID ALBUMIN PLEURAL
[2024-06-22 13:29] LABS: SOURCE, BODY FLUID TOT PROTEIN PLEURAL; TOTAL PROTEIN, BODY FLUID < 2.0 G/DL (NOT ESTABLISHED)
[2024-06-22 13:30] LABS: SOURCE, BODY FLUID GLUCOSE PLEURAL; SOURCE, BODY FLUID TRIG PLEURAL; TRIGLYCERIDE, BODY FLUID 25 MG/DL (NOT ESTABLISHED)
[2024-06-22 13:31] LABS: LDH, BODY FLUID 88 U/L (NOT ESTABLISHED); SOURCE, BODY FLUID LDH PLEURAL
[2024-06-22 13:32] LABS: AMYLASE, BODY FLUID 23 U/L (NOT ESTABLISHED); CHOLESTEROL, BODY FLUID 28 MG/DL (NOT ESTABLISHED); SOURCE, BODY FLUID AMYLASE PLEURAL; SOURCE, BODY FLUID CHOL PLEURAL
[2024-06-22] MEDS: APIXABAN 5 MG TAB (ELIQUIS) PO SCH (21:18)
[2024-06-23 04:02] VITALS: BP 90/65; TEMP 98.2; O2SAT 93
[2024-06-23 07:45] LABS: BASO % 0.1 % (0.0-1.0); EOS % 0.1 % (0.0-3.0); HEMATOCRIT 37.4 % (42.0-52.0); HEMOGLOBIN 12.4 g/dl (13.5-17.5); LYMPH # 1.5 10^3/uL (1.5-5.0); LYMPH % 20.2 % (24.0-44.0); MEAN CORPUSCULAR HEMOGLOBIN 31.6 pg (27.0-33.0); MEAN CORPUSCULAR HGB CONC 33.2 g/dl (32.0-36.5); MEAN CORPUSCULAR VOLUME 95.4 fl (80.0-96.0); MONO % 13.3 % (2.0-8.0); NEUTROPHILS # 4.8 10^3/uL (1.5-8.5); PLATELET COUNT, AUTOMATED 221 10^3/uL (150-450); RED BLOOD COUNT 3.92 10^6/uL (4.30-6.10); WHITE BLOOD COUNT 7.2 10^3/uL (4.0-10.0)
[2024-06-23 08:09] LABS: CALCIUM LEVEL 8.5 MG/DL (8.3-10.6); CREATININE FOR GFR 1.57 MG/DL (0.70-1.30); GLOMERULAR FILTRATION RATE 48.2 (>49); POTASSIUM SERUM 3.9 MMOL/L (3.5-5.1)
[2024-06-23 08:25] VITALS: BP 99/68; TEMP 97.8; O2SAT 95
[2024-06-23 09:20] VITALS: BP 99/68
[2024-06-23] MEDS ORDERED: DOXY100T PO (10:12)
[2024-06-23] MEDS ORDERED: PRED10TA2 PO (10:12)
[2024-06-23] MEDS ORDERED: MUCI600T31 PO (10:12)
[2024-06-23] MEDS ORDERED: CEFD1CAP9 PO (10:12)
[2024-06-23] MEDS ORDERED: ELIQ5TAB PO (10:12)
[2024-06-23 11:41] VITALS: O2SAT 98
[2024-06-23 11:55] VITALS: BP 96/80; TEMP 97.7; O2SAT 98
[2024-06-23 20:22] LABS: URINE STREP PNEUMONIAE ANTIGEN NOT DETECTED (NOT DETECT)
[2024-06-24] MEDS ORDERED: predniSONE 10MG TAB PO SCH (09:00)
== END 2024-06-23 12:52 | disposition home health service (06) | DRG 139 ==
LOC: M ED 10:32 → M ED INP 16:17 → M PCU 06-21 14:03
PROVIDERS: ADMIT Internal Medicine; ATTEND Internal Medicine
PROC: 0W993ZZ Drainage of Right Pleural Cavity, Percutaneous Approach (ICD-10-PCS; principal; 2024-06-22 12:00)
DX: J18.9 Pneumonia, unspecified organism (principal); E85.4 Organ-limited amyloidosis; I43 Cardiomyopathy in diseases classified elsewhere; I50.22 Chronic systolic (congestive) heart failure; J44.9 Chronic obstructive pulmonary disease, unspecified; J90 Pleural effusion, not elsewhere classified; I95.89 Other hypotension; H53.462 Homonymous bilateral field defects, left side; I48.91 Unspecified atrial fibrillation; Z79.01 Long term (current) use of anticoagulants; Z79.899 Other long term (current) drug therapy; N17.9 Acute kidney failure, unspecified

== ENCOUNTER → 2024-06-24 | Outpatient (REF) | payer MEDICAID, OTHER ==
[~2024-06-24] MED LIST changes: +CEFD1CAP9 PO; +DOXY-440 PO; +DOXY100T PO; +GUAI600T12 PO; +MUCI600T31 PO; +PRED10TA2 PO
[2024-06-24 14:40] LABS: HEMATOCRIT 41.1 % (42.0-52.0); HEMOGLOBIN 13.4 g/dl (13.5-17.5); MEAN CORPUSCULAR HEMOGLOBIN 31.2 pg (27.0-33.0); MEAN CORPUSCULAR HGB CONC 32.6 g/dl (32.0-36.5); MEAN CORPUSCULAR VOLUME 95.6 fl (80.0-96.0); PLATELET COUNT, AUTOMATED 249 10^3/uL (150-450); WHITE BLOOD COUNT 9.5 10^3/uL (4.0-10.0)
[2024-06-24 14:45] LABS: BILIRUBIN,TOTAL 2.3 MG/DL (0.3-1.2); CALCIUM LEVEL 9.3 MG/DL (8.3-10.6); CREATININE FOR GFR 1.56 MG/DL (0.70-1.30); GLOMERULAR FILTRATION RATE 48.6 (>49); POTASSIUM SERUM 4.3 MMOL/L (3.5-5.1)
== END ==
LOC: M SFHCADAM 09:55
PROVIDERS: ATTEND Family Medicine
DX: I50.20 Unspecified systolic (congestive) heart failure (principal); J43.8 Other emphysema; J90 Pleural effusion, not elsewhere classified; N17.9 Acute kidney failure, unspecified

== ENCOUNTER 2024-06-27 22:24 | Inpatient (IN) | payer MEDICAID ==
[~2024-06-27] VITALS: Ht 182.9 cm; Wt 76.7 kg
[~2024-06-27 22:24] MED LIST changes: -DOXY-440 PO; -GUAI600T12 PO
[2024-06-27 23:30] LABS: VENOUS BASE EXCESS -3.5 (-2.0-2.0); VENOUS HCO3 22.4 MMOL/L (23.0-27.0); VENOUS O2 SATURATION 55.7 % (60.0-80.0); VENOUS PARTIAL PRESSURE CO2 43.1 mmHg (38.0-50.0); VENOUS PARTIAL PRESSURE O2 33.4 mmHg (30.0-50.0); VENOUS PH 7.333 UNITS (7.330-7.430); VENOUS STANDARD HCO3 20.7 MMOL/L; VENOUS TOTAL CO2 23.7 MMOL/L (24.0-28.0)
[2024-06-27 23:45] LABS: BASO % 0.1 % (0.0-1.0); HEMATOCRIT 39.6 % (42.0-52.0); HEMOGLOBIN 13.1 g/dl (13.5-17.5); LYMPH # 1.1 10^3/uL (1.5-5.0); LYMPH % 12.5 % (24.0-44.0); MEAN CORPUSCULAR HEMOGLOBIN 31.6 pg (27.0-33.0); MEAN CORPUSCULAR HGB CONC 33.1 g/dl (32.0-36.5); MEAN CORPUSCULAR VOLUME 95.4 fl (80.0-96.0); MONO # 1.2 10^3/uL (0.0-0.8); MONO % 13.8 % (2.0-8.0); NEUTROPHILS # 6.4 10^3/uL (1.5-8.5); NEUTROPHILS % 73.3 % (36.0-66.0); PLATELET COUNT, AUTOMATED 236 10^3/uL (150-450); RED BLOOD COUNT 4.15 10^6/uL (4.30-6.10); WHITE BLOOD COUNT 8.8 10^3/uL (4.0-10.0)
[2024-06-28 00:05] LABS: CK-MB VALUE MASS 3.6 NG/ML (<3.6)
[2024-06-28 00:07] LABS: ALBUMIN 2.8 G/DL (3.2-5.2); BILIRUBIN,DIRECT 0.7 MG/DL (<0.4); CALCIUM LEVEL 8.6 MG/DL (8.3-10.6); CREATININE FOR GFR 1.44 MG/DL (0.70-1.30); GLOMERULAR FILTRATION RATE 53.3 (>49); POTASSIUM SERUM 4.3 MMOL/L (3.5-5.1); TOTAL PROTEIN 6.7 G/DL (5.7-8.2)
[2024-06-28 00:09] LABS: THYROID STIMULATING HORMONE 4.183 uIU/ML (0.55-4.78)
[2024-06-28 00:16] LABS: MB/CK RELATIVE INDEX 5.29 (< OR =4)
[2024-06-28] MEDS: FUROSEMIDE 100MG/10ML VIAL IV ONE (00:25)
[2024-06-28 02:01] LABS: CK-MB VALUE MASS 3.1 NG/ML (<3.6)
[2024-06-28 02:03] LABS: MB/CK RELATIVE INDEX 4.84 (< OR =4)
[2024-06-28] MEDS: FUROSEMIDE 40MG/4ML VIAL IV ONE (06:37)
[2024-06-28 07:45] VITALS: BP 101/79; TEMP 98.2; O2SAT 97
[2024-06-28 07:59] LABS: HEMATOCRIT 41.7 % (42.0-52.0); HEMOGLOBIN 13.8 g/dl (13.5-17.5); MEAN CORPUSCULAR HEMOGLOBIN 31.1 pg (27.0-33.0); MEAN CORPUSCULAR HGB CONC 33.1 g/dl (32.0-36.5); MEAN CORPUSCULAR VOLUME 93.9 fl (80.0-96.0); PLATELET COUNT, AUTOMATED 236 10^3/uL (150-450); RED BLOOD COUNT 4.44 10^6/uL (4.30-6.10); WHITE BLOOD COUNT 8.5 10^3/uL (4.0-10.0)
[2024-06-28 08:23] LABS: CK-MB VALUE MASS 4.3 NG/ML (<3.6)
[2024-06-28] MEDS ORDERED: HOME MED LIST COMPLETE! XX SCH (08:35)
[2024-06-28 08:51] LABS: ALBUMIN 3.1 G/DL (3.2-5.2); BILIRUBIN,TOTAL 2.3 MG/DL (0.3-1.2); CALCIUM LEVEL 8.7 MG/DL (8.3-10.6); CHOLESTEROL RISK RATIO 3.23 (<5); CREATININE FOR GFR 1.42 MG/DL (0.70-1.30); GLOMERULAR FILTRATION RATE 54.1 (>49); HDL CHOLESTEROL 36.5 MG/DL (>40); LDL CHOLESTEROL 69.1 MG/DL (<100); MB/CK RELATIVE INDEX 5.51 (< OR =4); NON-HDL-C 81.5 MG/DL; POTASSIUM SERUM 3.7 MMOL/L (3.5-5.1); TOTAL PROTEIN 7.3 G/DL (5.7-8.2)
[2024-06-28] MEDS ORDERED: GUAI600T12 PO (08:51)
[2024-06-28] MEDS ORDERED: CEFD1CAP9 PO (08:51)
[2024-06-28] MEDS ORDERED: DOXY-440 PO (08:51)
[2024-06-28] MEDS ORDERED: ELIQ5TAB PO (08:51)
[2024-06-28] MEDS ORDERED: ENOXAPARIN 30MG/0.3ML SYRINGE (J1650 PER 10MG) SC SCH (09:00)
[2024-06-28] MEDS: METOPROLOL TART 12.5 MG PER 1/2 TAB PO SCH (09:00)
[2024-06-28] MEDS: NICOTINE 14 MG/24 HR TRANSDERMAL TD SCH (09:00)
[2024-06-28] MEDS: APIXABAN 5 MG TAB (ELIQUIS) PO SCH (09:47)
[2024-06-28 12:00] VITALS: BP 98/67; TEMP 97.6; O2SAT 97
[2024-06-28] MEDS ORDERED: FUROSEMIDE 20MG/2ML VIAL IV ONE (12:00)
[2024-06-28] MEDS: FUROSEMIDE 100MG/10ML VIAL IV SCH (12:00)
[2024-06-28] MEDS: DAPAGLIFLOZIN PROPANEDIOL 10MG TABLET (FARXIGA) PO SCH (14:11)
[2024-06-28] MEDS: AMIODARONE 200 MG TAB (PACERONE) PO SCH (14:11)
[2024-06-28] MEDS: guaiFENesin ER TABLET 600 MG TAB PO SCH (14:11)
[2024-06-28 15:26] VITALS: BP 93/66; O2SAT 96
[2024-06-28] MEDS: MIDODRINE 5 MG TAB PO SCH (15:28)
[2024-06-28 16:20] VITALS: BP 136/61; TEMP 99.2; O2SAT 98
[2024-06-28 20:00] VITALS: BP 97/71; TEMP 98.9; O2SAT 95
[2024-06-28] MEDS: FUROSEMIDE 40MG/4ML VIAL IV SCH (20:20)
[2024-06-28] MEDS: ATORVASTATIN 20 MG TAB PO SCH (20:32)
[2024-06-28 22:19] LABS: CK-MB VALUE MASS 4.9 NG/ML (<3.6)
[2024-06-28 22:26] LABS: MB/CK RELATIVE INDEX 8.44 (< OR =4)
[2024-06-29] VITALS: BP 84/64; TEMP 98.4; O2SAT 93
[2024-06-29 04:00] VITALS: BP 95/70; TEMP 99.4; O2SAT 92
[2024-06-29 05:05] LABS: HEMATOCRIT 36.7 % (42.0-52.0); HEMOGLOBIN 12.2 g/dl (13.5-17.5); MEAN CORPUSCULAR HEMOGLOBIN 31.3 pg (27.0-33.0); MEAN CORPUSCULAR HGB CONC 33.2 g/dl (32.0-36.5); MEAN CORPUSCULAR VOLUME 94.1 fl (80.0-96.0); PLATELET COUNT, AUTOMATED 206 10^3/uL (150-450); WHITE BLOOD COUNT 7.3 10^3/uL (4.0-10.0)
[2024-06-29 05:42] LABS: ALBUMIN 2.7 G/DL (3.2-5.2); BILIRUBIN,TOTAL 2.7 MG/DL (0.3-1.2); CREATININE FOR GFR 1.42 MG/DL (0.70-1.30); GLOMERULAR FILTRATION RATE 54.1 (>49); MAGNESIUM LEVEL 2.2 MG/DL (1.8-2.4); POTASSIUM SERUM 3.5 MMOL/L (3.5-5.1); TOTAL PROTEIN 6.3 G/DL (5.7-8.2)
[2024-06-29 08:00] VITALS: BP 88/63; TEMP 99; O2SAT 94
[2024-06-29 12:00] VITALS: BP 100/66; TEMP 98.9; O2SAT 95
[2024-06-29] MEDS: MIDODRINE 5 MG TAB PO SCH (12:42)
[2024-06-29 16:00] VITALS: BP 103/70; TEMP 98.6; O2SAT 93
[2024-06-29 20:50] VITALS: BP 98/74; TEMP 98.4; O2SAT 96
[2024-06-30] VITALS: BP 103/68; TEMP 97.6; O2SAT 94
[2024-06-30 04:00] VITALS: BP 101/64; TEMP 98.6; O2SAT 95
[2024-06-30 05:19] LABS: CALCIUM LEVEL 8.1 MG/DL (8.3-10.6); CREATININE FOR GFR 1.5 MG/DL (0.70-1.30); GLOMERULAR FILTRATION RATE 50.8 (>49); MAGNESIUM LEVEL 2.1 MG/DL (1.8-2.4); POTASSIUM SERUM 3.5 MMOL/L (3.5-5.1)
[2024-06-30] MEDS: POTASSIUM CHLORIDE 10MEQ SR TABLET PO ONE (06:55)
[2024-06-30 08:00] VITALS: BP 105/68; TEMP 98.7; O2SAT 94
[2024-06-30 10:30] VITALS: BP 98/69
[2024-06-30 10:59] LABS: SOURCE, BODY FLUID GLUCOSE PLEURAL; SOURCE, BODY FLUID TOT PROTEIN PLEURAL; TOTAL PROTEIN, BODY FLUID < 2.0 G/DL (NOT ESTABLISHED)
[2024-06-30 11:00] LABS: LDH, BODY FLUID 117 U/L (NOT ESTABLISHED); SOURCE, BODY FLUID LDH PLEURAL
[2024-06-30 16:00] VITALS: BP 96/69; TEMP 98.3; O2SAT 96
[2024-06-30 20:00] VITALS: BP 113/77; TEMP 98.8; O2SAT 98
[2024-07-01] VITALS (9 sets, daily range): BP systolic 95–122; BP diastolic 61–97; TEMP 97.9–99; O2SAT 92–97
[2024-07-01] MEDS: METOPROLOL TART 25 MG TABLET PO SCH (09:00)
[2024-07-01] MEDS: FUROSEMIDE 40 MG TAB PO SCH (09:00)
[2024-07-01] MEDS ORDERED: LIDOCAINE 1% MDV 20ML VIAL As Ordered ONE (14:38)
[2024-07-01] MEDS: IPRATROPIUM 0.5MG/ALBUTEROL 2.5MG INH SOL UD 3ML (DUONEB) NEB PRN (23:02)
[2024-07-01] MEDS: methylPREDNISolone 125MG 2ML VIAL IV ONE (23:15)
[2024-07-01 23:54] LABS: VENOUS HCO3 15.9 MMOL/L (23.0-27.0); VENOUS PARTIAL PRESSURE CO2 38.8 mmHg (38.0-50.0); VENOUS PARTIAL PRESSURE O2 48.4 mmHg (30.0-50.0); VENOUS STANDARD HCO3 15.5 MMOL/L; VENOUS TOTAL CO2 17.1 MMOL/L (24.0-28.0)
[2024-07-01 23:56] LABS: BASO % 0.4 % (0.0-1.0); EOS % 0.2 % (0.0-3.0); HEMATOCRIT 43.5 % (42.0-52.0); HEMOGLOBIN 14.1 g/dl (13.5-17.5); LYMPH % 23.9 % (24.0-44.0); MEAN CORPUSCULAR HGB CONC 32.4 g/dl (32.0-36.5); MEAN CORPUSCULAR VOLUME 95.6 fl (80.0-96.0); MONO # 1.2 10^3/uL (0.0-0.8); MONO % 13.9 % (2.0-8.0); NEUTROPHILS # 5.1 10^3/uL (1.5-8.5); PLATELET COUNT, AUTOMATED 200 10^3/uL (150-450); RED BLOOD COUNT 4.55 10^6/uL (4.30-6.10); WHITE BLOOD COUNT 8.4 10^3/uL (4.0-10.0)
[2024-07-02] VITALS (9 sets, daily range): BP systolic 94–106; BP diastolic 58–72; TEMP 98–98.7; O2SAT 94–97
[2024-07-02 00:24] LABS: CK-MB VALUE MASS 2.4 NG/ML (<3.6)
[2024-07-02 00:38] LABS: ALBUMIN 2.9 G/DL (3.2-5.2); BILIRUBIN,TOTAL 3.2 MG/DL (0.3-1.2); CALCIUM LEVEL 8.2 MG/DL (8.3-10.6); CREATININE FOR GFR 1.7 MG/DL (0.70-1.30); MAGNESIUM LEVEL 2.3 MG/DL (1.8-2.4); POTASSIUM SERUM 4.3 MMOL/L (3.5-5.1)
[2024-07-02 00:42] LABS: MB/CK RELATIVE INDEX 3.52 (< OR =4)
[2024-07-02] MEDS: FUROSEMIDE 20MG/2ML VIAL IV ONE (01:21)
[2024-07-02] MEDS ORDERED: IPRATROPIUM 0.5MG/ALBUTEROL 2.5MG INH SOL UD 3ML (DUONEB) NEB SCH (02:00)
[2024-07-02] MEDS: IPRATROPIUM 0.5MG/ALBUTEROL 2.5MG INH SOL UD 3ML (DUONEB) NEB SCH (02:01)
[2024-07-02 03:01] LABS: CK-MB VALUE MASS 1.2 NG/ML (<3.6)
[2024-07-02 03:03] LABS: MB/CK RELATIVE INDEX 2.06 (< OR =4)
[2024-07-02] MEDS: METOPROLOL TART 12.5 MG PER 1/2 TAB PO SCH (09:04)
[2024-07-02] MEDS: OSELTAMIVIR PHOSPHATE 30MG CAPSULE PO SCH (09:05)
[2024-07-03] VITALS (7 sets, daily range): BP systolic 96–111; BP diastolic 61–74; TEMP 98–98.3; O2SAT 95–98
[2024-07-03] MEDS: LEVALBUTEROL 1.25MG 0.5ML CONCENTRATE NEB INH PRN (02:08)
[2024-07-03 06:06] LABS: CALCIUM LEVEL 8.3 MG/DL (8.3-10.6); CREATININE FOR GFR 1.97 MG/DL (0.70-1.30); GLOMERULAR FILTRATION RATE 37.1 (>49); MAGNESIUM LEVEL 2.3 MG/DL (1.8-2.4); POTASSIUM SERUM 4.4 MMOL/L (3.5-5.1)
[2024-07-03] MEDS: SODIUM BICARBONATE 325 MG TAB PO SCH (16:19)
[2024-07-04] VITALS (11 sets, daily range): BP systolic 97–105; BP diastolic 59–73; TEMP 97.7–98.8; O2SAT 86–98
[2024-07-04 05:59] LABS: CALCIUM LEVEL 7.8 MG/DL (8.3-10.6); CREATININE FOR GFR 1.68 MG/DL (0.70-1.30); GLOMERULAR FILTRATION RATE 44.6 (>49); MAGNESIUM LEVEL 2.4 MG/DL (1.8-2.4); POTASSIUM SERUM 3.6 MMOL/L (3.5-5.1)
[2024-07-04] MEDS: guaiFENesin ER TABLET 600 MG TAB PO SCH (20:02)
[2024-07-05 03:19] VITALS: BP 86/58; TEMP 97.9; O2SAT 92
[2024-07-05 06:03] LABS: CREATININE FOR GFR 1.65 MG/DL (0.70-1.30); GLOMERULAR FILTRATION RATE 45.5 (>49); MAGNESIUM LEVEL 2.3 MG/DL (1.8-2.4); POTASSIUM SERUM 3.3 MMOL/L (3.5-5.1)
[2024-07-05] MEDS: KCL 10MEQ/100ML SWI (KRUN) 10 MEQ in IV 1 EA IV SCH (07:48)
[2024-07-05 08:00] VITALS: BP 102/70; TEMP 97.7; O2SAT 92
[2024-07-05] MEDS: POTASSIUM CHLORIDE 10MEQ SR TABLET PO ONE (08:19)
[2024-07-05] MEDS ORDERED: FURO20TA2 PO (08:21)
[2024-07-05] MEDS ORDERED: OSEL30CA PO (08:21)
[2024-07-05 08:25] VITALS: O2SAT 91
== END 2024-07-05 09:45 | disposition short-term general hospital (02) | DRG 194 ==
LOC: EDBD 22:24 → M ED 22:24 → M ED INP 22:25 → OBSVTOIN 06-28 16:12 → M ICU 06-28 16:12 → M MSPAV 07-01 13:10 → M ICU 07-02 12:24 → M MSPAV 07-04 14:29
PROVIDERS: ADMIT Student in an Organized Health Care Education/Training Program; ATTEND Student in an Organized Health Care Education/Training Program
PROC: 0W993ZZ Drainage of Right Pleural Cavity, Percutaneous Approach (ICD-10-PCS; principal; 2024-06-30 10:00)
PROC: 0JB83ZX Excision of Abdomen Subcutaneous Tissue and Fascia, Percutaneous Approach, Diagnostic (ICD-10-PCS; 2024-07-01)
DX: I50.43 Acute on chronic combined systolic (congestive) and diastolic (congestive) heart failure (principal); N17.9 Acute kidney failure, unspecified; I95.89 Other hypotension; J90 Pleural effusion, not elsewhere classified; E85.4 Organ-limited amyloidosis; R18.8 Other ascites; I27.20 Pulmonary hypertension, unspecified; I49.5 Sick sinus syndrome; I48.19 Other persistent atrial fibrillation; I51.3 Intracardiac thrombosis, not elsewhere classified; K76.0 Fatty (change of) liver, not elsewhere classified; K76.1 Chronic passive congestion of liver; Z79.01 Long term (current) use of anticoagulants; F17.200 Nicotine dependence, unspecified, uncomplicated; I69.398 Other sequelae of cerebral infarction; J10.1 Influenza due to other identified influenza virus with other respiratory manifestations; J98.11 Atelectasis; N18.9 Chronic kidney disease, unspecified; R00.1 Bradycardia, unspecified; R74.01 Elevation of levels of liver transaminase levels; Z79.899 Other long term (current) drug therapy; Z91.148 Patient's other noncompliance with medication regimen for other reason